=== PATIENT | female | born 1965 | race Caucasian/White ===

== ENCOUNTER 2017-05-08 13:50 | Emergency (ER) | payer MEDICARE ==
[~2017-05-08] VITALS: Ht 157.5 cm; Wt 90.0 kg
[~2017-05-08 13:50] MED LIST: ALLEGRA-D12 HOUR OR; CARBAMAZEPIN200 MG OR; CITALOPRAM20 MG OR; FLEXERIL10 MG OR; HALDOL5 MG OR; MACROBID100 MG PO; METFORMIN500 M2 PO; NEXIUM40 M1 OR; XANAX1 MG OR
[2017-05-08] MEDS ORDERED: HYDROCO/APAP1 TA9 PO (14:50)
[2017-05-08 15:11] VITALS: BP 132/84
== END 2017-05-08 15:07 | disposition home or self-care (01) ==
LOC: ED 13:50
PROC: 2W3DX1Z Immobilization of Left Lower Arm using Splint (ICD-10-PCS; principal; 2017-05-08)
DX: M25.532 Pain in left wrist (principal); M25.512 Pain in left shoulder; E11.9 Type 2 diabetes mellitus without complications; F41.9 Anxiety disorder, unspecified; F32.9 Major depressive disorder, single episode, unspecified; F17.210 Nicotine dependence, cigarettes, uncomplicated; W01.0XXA Fall on same level from slipping, tripping and stumbling without subsequent striking against object, initial encounter; Y93.89 Activity, other specified; Y92.009 Unspecified place in unspecified non-institutional (private) residence as the place of occurrence of the external cause

== ENCOUNTER 2017-06-16 17:15 | Emergency (ER) | payer MEDICARE ==
[~2017-06-16] VITALS: Ht 157.5 cm; Wt 84.0 kg
[~2017-06-16 17:15] MED LIST changes: +HYDROCO/APAP1 TA9 PO
[2017-06-16 19:30] LABS: HEMATOCRIT 44.1 % (37.0-47.0); HEMOGLOBIN 15.6 g/dl (12.0-16.0); IMMATURE GRANULOCYTES 1.7 % (0.0-1.0); MEAN CELL VOLUME 90.7 fL CALC (80.0-100.0); MEAN CORPUSCULAR HGB 32.1 pG CALC (26.0-32.0); MEAN CORPUSCULAR HGB CONC 35.4 g/L CALC (32.0-36.0); NEUT# 4.93 thou/uL (2.00-7.15); RED BLOOD COUNT 4.86 mill/uL (4.20-5.60); RED CELL DISTRI WIDTH 12.4 % (11.5-15.5)
[2017-06-16 19:40] LABS: URINE BILIRUBIN - DIPSTICK NEGATIVE (NEGATIVE); URINE BLOOD DIPSTICK TRACE-INTACT (NEGATIVE); URINE COLOR YELLOW; URINE GLUCOSE - DIPSTICK >=1000 mg/dL (NEGATIVE); URINE KETONE NEGATIVE (NEGATIVE); URINE LEUK ESTERASE NEGATIVE (NEGATIVE); URINE PH 5.5 (4.5-8.0); URINE PROTEIN - DIPSTICK NEGATIVE (NEG-TRACE); URINE UROBILINOGEN - DIPSTICK 0.2 E.U./dL (0.2)
[2017-06-16 19:46] LABS: URINE CLARITY CLOUDY; URINE NITRITE - DIPSTICK POSITIVE (Negative)
[2017-06-16 19:52] LABS: ALBUMIN 4.8 g/dL (3.2-5.0); ALKALINE PHOSPHATASE 139 u/l (38-126); ANION GAP 19 (6-22 (CALC)); BILIRUBIN, TOTAL 0.6 mg/dL (0.0-1.4); BUN 16 mg/dL (7-17); BUN/CREATININE RATIO 24 (12-20 (CALC)); CALCIUM 10.7 mg/dL (8.4-10.2); CARBON DIOXIDE 21 mmol/l (22-30); CHLORIDE 103 mmol/l (95-108); CREATININE 0.7 mg/dL (0.5-1.0); GFR > 60 ML/MIN (>=60 (CALC)); GFR FOR AFR.AMER. > 60 ML/MIN (>=60 (CALC)); GLUCOSE 360 mg/dL (65-105); POTASSIUM 4.3 mmol/l (3.5-5.1); SGOT/AST 19 u/l (14-36); SGPT/ALT 45 u/l (9-52); SODIUM 139 mmol/l (137-146); TOTAL PROTEIN 7.6 g/dL (6.3-8.2)
[2017-06-16 19:54] LABS: URINE BACTERIA MODERATE hpf; URINE SQUAMOUS EPITHELIAL CELL FEW EPI/hpf (0-FEW); URINE WBC 0-2 WBC/hpf (0-5)
[2017-06-16] MEDS ORDERED: CIPROFLOXACN500 MG PO (21:31)
[2017-06-16 21:40] VITALS: BP 161/93
== END 2017-06-16 21:40 | disposition home or self-care (01) ==
LOC: ED 17:15
PROVIDERS: Emergency Medicine
DX: L02.422 Furuncle of left axilla (principal); E11.9 Type 2 diabetes mellitus without complications; N39.0 Urinary tract infection, site not specified; F41.9 Anxiety disorder, unspecified; F31.9 Bipolar disorder, unspecified; K21.9 Gastro-esophageal reflux disease without esophagitis; M79.7 Fibromyalgia; B96.20 Unspecified Escherichia coli [E. coli] as the cause of diseases classified elsewhere; Z16.12 Extended spectrum beta lactamase (ESBL) resistance; Z87.891 Personal history of nicotine dependence; Z86.14 Personal history of Methicillin resistant Staphylococcus aureus infection

== ENCOUNTER 2017-06-24 07:55 | Emergency (ER) | payer MEDICARE ==
[~2017-06-24] VITALS: Ht 157.5 cm; Wt 82.0 kg
[~2017-06-24 07:55] MED LIST changes: +CIPROFLOXACN500 MG PO
[2017-06-24 08:33] VITALS: BP 135/92
== END 2017-06-24 08:43 | disposition home or self-care (01) ==
LOC: ED 07:55
PROC: 0X950ZZ Drainage of Left Axilla, Open Approach (ICD-10-PCS; principal; 2017-06-24)
DX: L02.412 Cutaneous abscess of left axilla (principal); F41.9 Anxiety disorder, unspecified; F31.9 Bipolar disorder, unspecified; E11.9 Type 2 diabetes mellitus without complications; K21.9 Gastro-esophageal reflux disease without esophagitis; M79.7 Fibromyalgia; F17.210 Nicotine dependence, cigarettes, uncomplicated

== ENCOUNTER 2017-06-25 08:48 | Emergency (ER) | payer MEDICARE ==
[~2017-06-25] VITALS: Ht 157.5 cm; Wt 81.0 kg
== END 2017-06-25 09:25 | disposition home or self-care (01) ==
LOC: ED 08:48
DX: Z48.01 Encounter for change or removal of surgical wound dressing (principal); F41.9 Anxiety disorder, unspecified; E11.9 Type 2 diabetes mellitus without complications; F31.9 Bipolar disorder, unspecified; K21.9 Gastro-esophageal reflux disease without esophagitis; M79.7 Fibromyalgia; F17.210 Nicotine dependence, cigarettes, uncomplicated

== ENCOUNTER 2018-11-23 18:18 | Emergency (ER) | payer MEDICARE ==
[~2018-11-23] VITALS: Ht 157.5 cm; Wt 74.0 kg
[2018-11-23] MEDS ORDERED: TEGRETOL200 MG PO (18:34)
[2018-11-23] MEDS ORDERED: ADVIL MIGRAI200 M1 PO (18:35)
[2018-11-23] MEDS ORDERED: BYETTA5 MCG/0.02 SC (18:35)
[2018-11-23 18:58] VITALS: BP 133/97
== END 2018-11-23 18:58 | disposition home or self-care (01) ==
LOC: ED 18:18
DX: S00.83XA Contusion of other part of head, initial encounter (principal); M84.48XA Pathological fracture, other site, initial encounter for fracture; E11.9 Type 2 diabetes mellitus without complications; G40.909 Epilepsy, unspecified, not intractable, without status epilepticus; F17.210 Nicotine dependence, cigarettes, uncomplicated; W20.8XXA Other cause of strike by thrown, projected or falling object, initial encounter

== ENCOUNTER 2018-12-02 17:13 | Emergency (ER) | payer MEDICARE ==
[~2018-12-02] VITALS: Ht 157.5 cm; Wt 77.7 kg
[~2018-12-02 17:13] MED LIST changes: +ADVIL MIGRAI200 M1 PO; +BYETTA5 MCG/0.02 SC; +TEGRETOL200 MG PO
[2018-12-02 17:50] LABS: URINE BILIRUBIN - DIPSTICK NEGATIVE (NEGATIVE); URINE BLOOD DIPSTICK NEGATIVE (NEGATIVE); URINE COLOR YELLOW; URINE GLUCOSE - DIPSTICK NEGATIVE (NEGATIVE); URINE KETONE NEGATIVE (NEGATIVE); URINE LEUK ESTERASE SMALL (NEGATIVE); URINE NITRITE - DIPSTICK POSITIVE (Negative); URINE PROTEIN - DIPSTICK NEGATIVE (NEG-TRACE); URINE SPECIFIC GRAVITY 1.025; URINE UROBILINOGEN - DIPSTICK 0.2 E.U./dL (0.2)
[2018-12-02 17:54] LABS: BARBITURATES NEGATIVE (NEGATIVE); COCAINE NEGATIVE (NEGATIVE); METHADONE NEGATIVE (NEGATIVE); OXCYCODONE POSITIVE (NEGATIVE); TETRAHYDROCANNABIONOL POSITIVE (NEGATIVE); TRICYLIC ANTIDEPRESSANTS NEGATIVE (NEGATIVE)
[2018-12-02] MEDS ORDERED: VENTOLIN HFA IN (17:58)
[2018-12-02] MEDS ORDERED: SYMBICORT 80-4.5MCG IN (17:58)
[2018-12-02 17:59] LABS: URINE BACTERIA MANY hpf; URINE SQUAMOUS EPITHELIAL CELL FEW EPI/hpf (0-FEW)
[2018-12-02 18:14] LABS: HEMOGLOBIN 14.3 g/dl (12.0-16.0); IMMATURE GRANULOCYTES 0.6 % (0.0-5.0); MEAN CELL VOLUME 90.3 fL CALC (80.0-100.0); MEAN CORPUSCULAR HGB 31.5 pG CALC (26.0-32.0); MEAN CORPUSCULAR HGB CONC 34.9 g/L CALC (32.0-36.0); NEUT# 5.82 thou/uL (2.00-7.15); RED BLOOD COUNT 4.54 mill/uL (4.20-5.60); RED CELL DISTRI WIDTH 11.9 % (11.5-15.5)
[2018-12-02] MEDS ORDERED: ONDANSETRON4 MG PO (18:28)
[2018-12-02] MEDS ORDERED: PYRIDIUM200 MG PO (18:28)
[2018-12-02] MEDS ORDERED: MACROBID100 MG PO (18:28)
[2018-12-02 18:30] LABS: ALBUMIN 4.4 g/dL (3.2-5.0); ALKALINE PHOSPHATASE 83 u/l (38-126); ANION GAP 15 (6-22 (CALC)); BILIRUBIN, TOTAL 0.4 mg/dL (0.0-1.4); BUN 17 mg/dL (7-17); BUN/CREATININE RATIO 23 (12-20 (CALC)); CARBON DIOXIDE 22 mmol/l (22-30); CHLORIDE 106 mmol/l (95-108); CREATININE 0.7 mg/dL (0.5-1.0); GFR > 60 ML/MIN (>=60 (CALC)); GFR FOR AFR.AMER. > 60 ML/MIN (>=60 (CALC)); POTASSIUM 3.7 mmol/l (3.5-5.1); SGOT/AST 14 u/l (14-36); SODIUM 140 mmol/l (137-146); TOTAL PROTEIN 7.4 g/dL (6.3-8.2)
[2018-12-02 18:38] VITALS: BP 148/88
== END 2018-12-02 18:44 | disposition home or self-care (01) ==
LOC: ED 17:13
PROVIDERS: Emergency Medicine
DX: N39.0 Urinary tract infection, site not specified (principal); B96.20 Unspecified Escherichia coli [E. coli] as the cause of diseases classified elsewhere; Z16.12 Extended spectrum beta lactamase (ESBL) resistance; R10.30 Lower abdominal pain, unspecified; R11.2 Nausea with vomiting, unspecified; R19.7 Diarrhea, unspecified; F17.210 Nicotine dependence, cigarettes, uncomplicated

== ENCOUNTER 2020-11-15 18:58 | Emergency (ER) | payer MEDICARE ==
[~2020-11-15] VITALS: Ht 157.5 cm; Wt 72.0 kg
[~2020-11-15 18:58] MED LIST changes: +ONDANSETRON4 MG PO; +PYRIDIUM200 MG PO; +SYMBICORT 80-4.5MCG IN; +VENTOLIN HFA IN
[2020-11-15 21:09] LABS: HEMATOCRIT 43.2 % (37.0-47.0); IMMATURE GRANULOCYTES 0.9 % (0.0-5.0); MEAN CORPUSCULAR HGB 31.3 pG CALC (26.0-32.0); MEAN CORPUSCULAR HGB CONC 34.7 g/dL CAL (32.0-36.0); NEUT# 5.76 thou/uL (2.00-7.15); RED BLOOD COUNT 4.8 mill/uL (4.20-5.60); RED CELL DISTRI WIDTH 12.6 % (11.5-15.5)
[2020-11-15 21:33] LABS: ALBUMIN 4.1 g/dL (3.2-5.0); ALKALINE PHOSPHATASE 90 u/l (38-126); BUN 13 mg/dL (7-17); BUN/CREATININE RATIO 22 (12-20 (CALC)); CARBON DIOXIDE 22 mmol/l (22-30); CHLORIDE 104 mmol/l (95-108); CREATININE 0.6 mg/dL (0.5-1.0); GFR > 60 ML/MIN (>=60 (CALC)); GFR FOR AFR.AMER. > 60 ML/MIN (>=60 (CALC)); SGOT/AST 14 u/l (14-36); SODIUM 136 mmol/l (137-146)
[2020-11-15 21:34] LABS: ANION GAP 13 (6-22 (CALC)); BILIRUBIN, TOTAL 0.7 mg/dL (0.0-1.4); POTASSIUM 3.3 mmol/l (3.5-5.1)
[2020-11-15 21:43] LABS: MYOGLOBIN 24 ng/mL (0 - 62)
[2020-11-15 22:59] LABS: URINE BILIRUBIN - DIPSTICK NEGATIVE (NEGATIVE); URINE BLOOD DIPSTICK NEGATIVE (NEGATIVE); URINE COLOR YELLOW; URINE GLUCOSE - DIPSTICK >=1000 mg/dL (NEGATIVE); URINE KETONE 15 mg/dL (NEGATIVE); URINE LEUK ESTERASE TRACE (NEGATIVE); URINE PROTEIN - DIPSTICK NEGATIVE (NEG-TRACE); URINE SPECIFIC GRAVITY 1.025
[2020-11-15 23:02] LABS: URINE NITRITE - DIPSTICK POSITIVE (Negative)
[2020-11-15 23:07] LABS: URINE BACTERIA MANY hpf; URINE SQUAMOUS EPITHELIAL CELL FEW EPI/hpf (0-FEW); URINE WBC 20-50 WBC/hpf (0-5)
[2020-11-16] MEDS ORDERED: CIPROFLOXACN500 MG PO (03:12)
[2020-11-16 03:19] VITALS: BP 142/77
--- NOTE | 2020-11-17 10:27 | NUR ---
FINAL URINE CULTURE SHOWS ESBL. CALLED PT TO DISCONTINUE CIPROFLOXACIN. PT IS AWARE SHE WILL BE TAKING MARCOBOD 100 MG BID X 7 DAYS. CALLED IN RX TO [facility] RAO WAS THE PHARMACIST.
== END 2020-11-16 03:41 | disposition home or self-care (01) ==
LOC: ED 18:58
PROVIDERS: Emergency Medicine
DX: N39.0 Urinary tract infection, site not specified (principal); R07.89 Other chest pain; R53.1 Weakness; I12.9 Hypertensive chronic kidney disease with stage 1 through stage 4 chronic kidney disease, or unspecified chronic kidney disease; E11.22 Type 2 diabetes mellitus with diabetic chronic kidney disease; N18.9 Chronic kidney disease, unspecified; J44.9 Chronic obstructive pulmonary disease, unspecified; M79.7 Fibromyalgia; K21.9 Gastro-esophageal reflux disease without esophagitis; G40.909 Epilepsy, unspecified, not intractable, without status epilepticus; F41.9 Anxiety disorder, unspecified; F31.9 Bipolar disorder, unspecified; F17.200 Nicotine dependence, unspecified, uncomplicated; B96.20 Unspecified Escherichia coli [E. coli] as the cause of diseases classified elsewhere; Z16.12 Extended spectrum beta lactamase (ESBL) resistance